=== PATIENT | female | born 1990 ===

== ENCOUNTER 2024-01-06 06:46 | Day surgery (SDC) | payer OTHER ==
[2024-01-06] MEDS ORDERED: POVIDONE-IODINE 118 ML BOTT TOP ONE ×2 (07:20→09:15)
[2024-01-06] MEDS ORDERED: IBU800 MG PO (09:09)
[2024-01-06] MEDS ORDERED: NEURONTIN300 MG PO (09:10)
== END 2024-01-06 11:16 | disposition home or self-care (01) ==
LOC: CIR.AMB 06:46
PROVIDERS: ATTEND Obstetrics & Gynecology Gynecology
DX: N92.0 Excessive and frequent menstruation with regular cycle (principal); Z30.2 Encounter for sterilization; Z88.0 Allergy status to penicillin; Z30.432 Encounter for removal of intrauterine contraceptive device